=== PATIENT | female | born 1970 | race Caucasian/White ===

== ENCOUNTER 2023-02-11 18:56 | Inpatient (IN) | payer MEDICAID ==
[~2023-02-11] VITALS: Ht 172.7 cm; Wt 74.7 kg
[2023-02-11] MEDS ORDERED: HALOPERIDOL LACTATE 5 MG/ML VIAL IM ONE (20:15)
[2023-02-11] MEDS ORDERED: DiphenhydrAMINE HCL 50 MG/ML VIAL IM ONE (20:15)
[2023-02-11] MEDS ORDERED: LORazepam 2 MG/ML VIAL IM ONE (20:15)
[2023-02-11] MEDS ORDERED: FLUO10CA24 PO (20:17)
[2023-02-11] MEDS ORDERED: ZIPRASIDONE MESYLATE 20 MG/VIAL IM ONE (21:30)
[2023-02-11 21:48] LABS: BASOPHILS % (AUTO) 0.9 % (0.0-2.0); HEMATOCRIT 42.7 % (36-46); HEMOGLOBIN 14.5 g/dL (12.0-16.0); LYMPHOCYTES % (AUTO) 34.9 % (22.0-44.0); MEAN CORPUSCULAR HEMOGLOBIN 33.3 pg (26.0-34.0); MEAN CORPUSCULAR HGB CONC 33.9 G/dL (31.0-37.0); MEAN CORPUSCULAR VOLUME 98 fL (80-100); MONOCYTES # (AUTO) 0.4 K/uL (0.1-1.0); MONOCYTES % (AUTO) 5.1 % (2.0-9.0); NEUTROPHILS % (AUTO) 57.1 % (40.0-70.0); PLATELET COUNT (AUTO) 344 K/uL (150-450); RED BLOOD CELL COUNT(AUTO) 4.35 MIL/uL (4.00-5.20); RED CELL DISTRIBUTION WIDTH 13.5 % (11.5-14.5)
[2023-02-11 21:51] LABS: COVID AG,FIA SOURCE NASOPHARYNGEAL
[2023-02-11 21:58] LABS: ANION GAP 12 mmol/L (8-16); CALCIUM, TOTAL 9.3 mg/dL (8.8-10.5); CARBON DIOXIDE 24 mmol/L (22-29); CHLORIDE 104 mmol/L (98-107); CREATININE 0.79 mg/dL (0.60-1.30); GLOMERULAR FILTR. RATE CALC > 60 mL/min (>60); GLUCOSE,RANDOM 125 mg/dL (70-110); POTASSIUM 3.4 mmol/L (3.5-5.1); SODIUM SERUM 140 mmol/L (136-145)
[2023-02-11 22:06] LABS: ALANINE AMINOTRANSFERASE 29 U/L (12-78); ALKALINE PHOSPHATASE 113 U/L (46-116); ASPARTATE AMINOTRANSFERASE 37 U/L (15-37); BILIRUBIN,TOTAL 0.5 mg/dL (0.1-1.0); TOTAL PROTEIN, SERUM 7.6 g/dL (6.4-8.2)
[2023-02-11] MEDS ORDERED: POTASSIUM CHLORIDE 10% 40 MEQ/30 ML LIQUID UDCUP PO ONE (22:45)
[2023-02-12] MEDS ORDERED: HALOPERIDOL 5 MG TABLET PO PRN (01:00)
[2023-02-12] MEDS ORDERED: ZOLPIDEM TARTRATE 10 MG TABLET PO PRN (01:00)
[2023-02-13 14:31] VITALS: BP 148/99; PULSE 112; RESP 18; TEMP 97.7; O2SAT 100
[2023-02-13] MEDS: LORazepam 2 MG TABLET PO PRN (20:50)
[2023-02-13 21:11] VITALS: BP 132/116; PULSE 100; RESP 19; TEMP 97.2; O2SAT 97
[2023-02-13] MEDS: METOPROLOL SUCCINATE 25 MG ER TABLET PO SCH (21:46)
[2023-02-13 22:48] VITALS: BP 133/94; PULSE 86; RESP 18; TEMP 97.9; O2SAT 98
[2023-02-14] MEDS ORDERED: ACETAMINOPHEN 325 MG TABLET PO PRN (06:00)
[2023-02-14] MEDS ORDERED: CloNIDine HCL 0.1 MG TABLET PO PRN (06:00)
[2023-02-14] MEDS ORDERED: MAG HYDROX/AL HYDROX/SIMETH ES 30 ML SUSPENSION UDCUP PO PRN (06:00)
[2023-02-14] MEDS ORDERED: LOPERAMIDE HCL 2 MG CAPSULE PO PRN (06:00)
[2023-02-14] MEDS ORDERED: PETROLATUM,WHITE 28 GM JELLY TP PRN (06:00)
[2023-02-14] MEDS ORDERED: BACITRACIN 28 GM OINTMENT TP PRN (06:00)
[2023-02-14] MEDS ORDERED: IBUPROFEN 600 MG TABLET PO PRN (06:00)
[2023-02-14] MEDS ORDERED: DOCUSATE SODIUM 100 MG CAPSULE PO PRN (06:00)
[2023-02-14] MEDS ORDERED: MAGNESIUM HYDROXIDE SUSPENSION 30 ML UDCUP PO PRN (06:00)
[2023-02-14] MEDS ORDERED: OMEPRAZOLE 20 MG CAPSULE PO PRN (06:00)
[2023-02-14] MEDS ORDERED: ALBUTEROL SULFATE HFA 90 MCG/PUFF 8 GM INHALER IH PRN (06:00)
[2023-02-14] MEDS ORDERED: BENZOCAINE/MENTHOL LOZENGE PO PRN (06:00)
[2023-02-14] MEDS ORDERED: ONDANSETRON HCL 4 MG TABLET PO PRN (06:00)
[2023-02-14 07:15] VITALS: BP 137/97; PULSE 76; RESP 18; TEMP 97.9; O2SAT 98
[2023-02-14 08:33] VITALS: BP 124/89; PULSE 84; RESP 18; TEMP 97.8; O2SAT 95
[2023-02-14] MEDS: METOPROLOL SUCCINATE 25 MG ER TABLET PO SCH (09:02)
[2023-02-14] MEDS: LORazepam 2 MG TABLET PO PRN ×2 (12:58→18:09)
[2023-02-14 20:10] VITALS: BP 122/90; PULSE 89; RESP 18; TEMP 97.8; O2SAT 96
[2023-02-15] MEDS: LORazepam 2 MG TABLET PO PRN ×2 (02:17→09:17)
[2023-02-15 08:16] VITALS: BP 145/88; PULSE 87; RESP 17; TEMP 98.2; O2SAT 96
[2023-02-15 08:24] LABS: BASOPHILS % (AUTO) 0.7 % (0.0-2.0); EOSINOPHILS % (AUTO) 5.2 % (1.0-6.0); HEMOGLOBIN 13.4 g/dL (12.0-16.0); LYMPHOCYTES # (AUTO) 2.6 K/uL (1.0-4.8); MEAN CORPUSCULAR HEMOGLOBIN 32.8 pg (26.0-34.0); MEAN CORPUSCULAR HGB CONC 33.4 G/dL (31.0-37.0); MEAN CORPUSCULAR VOLUME 98 fL (80-100); MONOCYTES # (AUTO) 0.6 K/uL (0.1-1.0); MONOCYTES % (AUTO) 8.9 % (2.0-9.0); NEUTROPHILS % (AUTO) 45.2 % (40.0-70.0); PLATELET COUNT (AUTO) 293 K/uL (150-450); RED BLOOD CELL COUNT(AUTO) 4.07 MIL/uL (4.00-5.20); RED CELL DISTRIBUTION WIDTH 13.4 % (11.5-14.5)
[2023-02-15 08:53] LABS: ALANINE AMINOTRANSFERASE 31 U/L (12-78); ALBUMIN 3.5 g/dL (3.4-5.0); ALKALINE PHOSPHATASE 107 U/L (46-116); ANION GAP 8 mmol/L (8-16); ASPARTATE AMINOTRANSFERASE 28 U/L (15-37); CALCIUM, TOTAL 9.1 mg/dL (8.8-10.5); CARBON DIOXIDE 29 mmol/L (22-29); CHLORIDE 100 mmol/L (98-107); CHOL/HDL RATIO 4.2 (3.9-5.7); CHOLESTEROL 201 mg/dL (131-200); CREATININE 0.73 mg/dL (0.60-1.30); GLOMERULAR FILTR. RATE CALC > 60 mL/min (>60); GLUCOSE,RANDOM 100 mg/dL (70-110); HDL CHOLESTEROL 48 mg/dL (40-60); LDL CHOL (CALC.) 118 mg/dL (0-130); PHOSPHORUS 4.3 mg/dL (2.5-4.9); POTASSIUM 3.6 mmol/L (3.5-5.1); SODIUM SERUM 137 mmol/L (136-145); THYROID STIMULATING HORMONE 1.46 uIU/mL (0.36-3.74); TOTAL PROTEIN, SERUM 6.6 g/dL (6.4-8.2); TRIGLYCERIDES 175 mg/dL (15-150)
[2023-02-15 08:55] LABS: HEMOGLOBIN A1C 5.4 % (3.8-5.6)
[2023-02-15] MEDS: METOPROLOL SUCCINATE 25 MG ER TABLET PO SCH (09:17)
[2023-02-15] MEDS ORDERED: FLUO20CA36 PO (10:59)
== END 2023-02-15 12:51 | disposition home or self-care (01) | DRG 751 ==
LOC: EMS 18:57 → B2S 02-13 12:06
PROVIDERS: ADMIT Psychiatry & Neurology Psychiatry; ATTEND Psychiatry & Neurology Psychiatry
DX: F32.3 Major depressive disorder, single episode, severe with psychotic features (principal); R45.851 Suicidal ideations; E87.6 Hypokalemia; I10 Essential (primary) hypertension; F10.129 Alcohol abuse with intoxication, unspecified; Z20.822 Contact with and (suspected) exposure to COVID-19; G47.00 Insomnia, unspecified; F41.9 Anxiety disorder, unspecified; K59.00 Constipation, unspecified; F19.10 Other psychoactive substance abuse, uncomplicated
CPT/HCPCS: 80053; 80061; 83036; 83735; 84100; 84443; 85025; 96372; 99291; G0480; J1200; J1630; J2060; J3486